=== PATIENT | female | born 1985 | race Caucasian/White ===

== ENCOUNTER 2019-12-17 17:34 | Emergency (ER) | payer OTHER ==
[~2019-12-17] VITALS: Ht 162.6 cm; Wt 95.7 kg
[~2019-12-17 17:34] MED LIST: CODE1TAB37 PO; Colace 100MG PO; Mylicon 125MG PO
== END 2019-12-17 22:10 | disposition home or self-care (01) ==
LOC: ER 17:34
DX: R19.09 Other intra-abdominal and pelvic swelling, mass and lump (principal); N93.8 Other specified abnormal uterine and vaginal bleeding

== ENCOUNTER 2020-01-01 16:21 | Inpatient (IN) | payer OTHER ==
[2020-01-04] MEDS ORDERED: PROFERRIN-FORT1 EACH PO (10:12)
[2020-01-14] MEDS ORDERED: PERCOCET 5-3251 EACH PO (08:12)
== END 2020-01-14 10:14 | disposition home or self-care (01) | DRG 743 ==
LOC: ADM 01-04 07:30 → O/R 01-08 06:53 → SURG-SUITE 01-08 06:53 → CIR.AMB 01-08 07:00 → SURG-SUITE 01-08 07:14 → CIR.AMB 01-08 07:30 → EDSTATUS 01-08 07:30 → SURG-SUITE 01-14 10:14
PROVIDERS: ADMIT Obstetrics & Gynecology; ATTEND Obstetrics & Gynecology
PROC: 0UT70ZZ Resection of Bilateral Fallopian Tubes, Open Approach (ICD-10-PCS; 2020-01-11)
PROC: 0UT90ZZ Resection of Uterus, Open Approach (ICD-10-PCS; principal; 2020-01-11 07:00)
DX: D25.1 Intramural leiomyoma of uterus (principal); N72 Inflammatory disease of cervix uteri; N83.8 Other noninflammatory disorders of ovary, fallopian tube and broad ligament; N93.8 Other specified abnormal uterine and vaginal bleeding; Z03.818 Encounter for observation for suspected exposure to other biological agents ruled out
CPT/HCPCS: 72195; 74181

== ENCOUNTER 2021-02-18 19:20 | Emergency (ER) | payer OTHER ==
[~2021-02-18] VITALS: Ht 162.6 cm; Wt 97.5 kg
[~2021-02-18 19:20] MED LIST changes: +PERCOCET 5-3251 EACH PO; +PROFERRIN-FORT1 EACH PO
[2021-02-18] MEDS ORDERED: IBU800 MG PO (22:14)
== END 2021-02-18 22:32 | disposition home or self-care (01) ==
LOC: ER 19:20
DX: M54.5 Low back pain (principal)